=== PATIENT | male | born 1965 | race Caucasian/White ===

== ENCOUNTER → 2021-04-22 | Outpatient (CLI) | payer OTHER ==
--- NOTE | 2021-04-22 14:58 | XR ---
EXAMINATION TYPE: XR chest 2V DATE OF EXAM: 04/22/2021 COMPARISON: NONE HISTORY: Shortness of breath TECHNIQUE: Frontal and lateral views of the chest are obtained. FINDINGS: Scattered senescent parenchymal changes noted. Hyperinflation compatible with COPD. Right hilar fullness could reflect underlying infiltrate however I cannot exclude underlying mass or adenopathy. CT chest recommended for further evaluation. Heart size is stable. Mediastinal structures are stable and grossly unremarkable. No evidence for hilar prominence. Degenerative changes dorsal spine. IMPRESSION: 1. Right hilar fullness could reflect underlying infiltrate however I cannot exclude underlying mass or adenopathy. CT chest recommended for further evaluation.
[2021-04-22 23:13] LABS: Basophils # (A) 0.08 X 10*3/uL (0.00-0.10); Basophils % (A) 0.9 %; Eosinophils # (A) 0.29 X 10*3/uL (0.04-0.35); Eosinophils % (A) 3.4 %; HCT 47.2 % (39.6-50.0); HGB 14.9 g/dL (13.0-17.0); Lymphocytes # (A) 1.88 X 10*3/uL (0.90-5.00); MCHC 31.6 g/dL (32.0-37.0); MCV 91.8 fL (80.0-97.0); Mean Platelet Volume 10.1 fL (9.5-12.2); Neutrophils # (A) 5.65 X 10*3/uL (1.80-7.70); Neutrophils % (A) 66.3 %; Platelet Count 220 X 10*3/uL (140-440); RBC 5.14 X 10*6/uL (4.40-5.60); WBC 8.53 X 10*3/uL (4.50-10.00)
[2021-04-23 02:16] LABS: ALT 19 U/L (10-49); AST 19 U/L (14-35); African American GFR (CKD) 100.9 (60.0-200.0); Albumin 3.8 g/dL (3.8-4.9); Albumin/Globulin Ratio 1.48 (1.60-3.17); Alkaline Phosphatase 77 U/L (41-126); BUN/Creat Ratio 21.66 Ratio (12.00-20.00); Blood Urea Nitrogen 21.1 mg/dL (9.0-27.0); Calcium 8.8 mg/dL (8.7-10.3); Carbon Dioxide 27.6 mmol/L (20.0-27.5); Chloride 106 mmol/L (96-109); Globulin 2.5 g/dL (1.6-3.3); Glucose 89 mg/dL (70-110); Non-African American GFR(CKD) 87.1 (60.0-200.0); Potassium 4.5 mmol/L (3.5-5.5); Sodium 142 mmol/L (135-145); Total Protein 6.3 g/dL (6.2-8.2)
[2021-04-23 03:09] LABS: Rheumatoid Factor, Qnt <10 IU/mL (0-15)
[2021-04-23 05:17] LABS: Cyclic Citrull Pep IgG Unit <0.5 U/mL; Cyclic Citrullinated Pep IgG NEGATIVE (NEGATIVE)
[2021-04-23 07:36] LABS: Angiotensin-1 Converting Enz. 49 U/L (8-52)
== END | disposition home or self-care (01) ==
LOC: LABWHC1 14:14
PROVIDERS: ATTEND Student in an Organized Health Care Education/Training Program
DX: K59.00 Constipation, unspecified (principal); Q85.03 Schwannomatosis; F33.1 Major depressive disorder, recurrent, moderate; G89.4 Chronic pain syndrome; H30.23 Posterior cyclitis, bilateral; R33.8 Other retention of urine; R06.02 Shortness of breath; Z86.718 Personal history of other venous thrombosis and embolism
CPT/HCPCS: 85549; 80053; 82164; 84443; 85025; 86431; 82306; 86780; 86480; 86200; 83036; 71046; 36415; G0103

== ENCOUNTER → 2021-04-30 | Outpatient (CLI) | payer OTHER | END | disposition home or self-care (01) | LOC: LABWHC1 09:41 | PROVIDERS: ATTEND Student in an Organized Health Care Education/Training Program | DX: K59.00 Constipation, unspecified (principal); Q85.03 Schwannomatosis; G89.4 Chronic pain syndrome; F33.1 Major depressive disorder, recurrent, moderate; R33.8 Other retention of urine; Z86.718 Personal history of other venous thrombosis and embolism | CPT/HCPCS: 36415; 80061 ==